=== PATIENT | female | born 1970 | race African-American/Black ===

== ENCOUNTER 2017-01-15 09:24 | Emergency (ER) | payer MEDICAID ==
[~2017-01-15] VITALS: Ht 167.6 cm; Wt 85.0 kg
[2017-01-15] MEDS ORDERED: IBUPROFEN 600MG TABLET PO ONE (10:30)
[2017-01-15 10:40] VITALS: BP 108/50
[2017-01-15 11:40] LABS: CLARITY URINE CLOUDY (CLEAR); COLOR URINE YELLOW (YELLOW); KETONES URINE TRACE (NEGATIVE); LEUKOCYTE ESTERASE URINE 3+ (NEGATIVE); NITRITE URINE NEGATIVE (NEGATIVE); OCCULT BLOOD URINE 3+ (NEGATIVE); PROTEIN URINE 2+ (NEGATIVE); SPECIFIC GRAVITY URINE 1.022 (1.005-1.030)
[2017-01-15] MEDS ORDERED: AZITHROMYCIN 500 MG TABLET PO ONE (12:00)
[2017-01-15] MEDS ORDERED: CEFTRIAXONE SODIUM 250 MG/VIAL IM ONE (12:00)
[2017-01-15] MEDS ORDERED: AMOXICILLIN 500 MG CAPSULE PO ONE ×2 (12:00→12:15)
[2017-01-15] MEDS ORDERED: LIDOCAINE HCL/EPINEPHRINE 0.5%-EPI 1:200,000 50 ML VIAL INFIL ONE (12:00)
[2017-01-15] MEDS ORDERED: LIDOCAINE HCL/EPINEPHRINE 1%-EPI 1:100,000 30 ML VIAL INFIL ONE (12:15)
== END 2017-01-15 12:30 | disposition home or self-care (01) ==
LOC: ER 09:30
DX: N30.00 Acute cystitis without hematuria (principal)
CPT/HCPCS: 81001; 81025; 96372; 99284; J0696; J3490